=== PATIENT | male | born 1980 | race Caucasian/White ===

== ENCOUNTER 2024-06-21 10:03 | Emergency (ER) | payer MEDICAID ==
[~2024-06-21] VITALS: Ht 180.3 cm; Wt 141.0 kg
[2024-06-21 10:20] VITALS: TEMP 98.8
[2024-06-21 10:32] VITALS: PULSE 52; RESP 18; O2SAT 97
[2024-06-21] MEDS: KETOROLAC TROMETH 30 MG/ML 1ML VIAL IV ONE (10:50)
[2024-06-21] MEDS: METOCLOPRAMIDE HCL 5MG/ml INJ 2ml VIAL IV ONE (10:50)
[2024-06-21] MEDS: SODIUM CHLORIDE 0.9% 1,000 ML IVB ONE (10:57)
[2024-06-21 11:10] LABS: Basophils # (auto) 0 10 ^3/uL (0-0.2); Basophils % (auto) 0.7 % (0.0-2.0); Eosinophils # (auto) 0.1 10 ^3/uL (0-0.8); Eosinophils % (auto) 1.5 % (0.0-7.0); Hemoglobin 15.5 g/dL (13.5-17.5); Lymphocytes # (auto) 1.5 10 ^3/uL (0.4-5.4); Lymphocytes % (auto) 23.5 % (10.0-50.0); Mean Corpuscular Hemoglobin 29.3 pg (28.0-32.0); Mean Corpuscular Hgb Conc. 34.5 g/dL (32.0-36.0); Monocytes # (auto) 0.5 10 ^3/uL (0-1.3); Monocytes % (auto) 8.4 % (0.0-12.0); Neutrophils # (auto) 4.2 10 ^3/uL (1.6-8.6); Neutrophils % (auto) 65.9 % (37.0-80.0); Nucleated Red Blood Cells % 0.1 %; Platelet Count (auto) 207 10^3/uL (140-450); Red Blood Cells 5.29 10^6/uL (4.5-5.90); Red Cell Distribution Width 13.8 % (11.8-14.3); White Blood Cell 6.4 10^3/uL (4.4-10.8)
[2024-06-21 11:23] LABS: Urine Bacteria None Seen /hpf (None Seen)
[2024-06-21 11:25] LABS: Alanine Aminotransferase 26 U/L (7-40); Alkaline Phosphatase 63 U/L (46-116); Calcium 9.3 mg/dL (8.7-10.4); Carbon Dioxide 24 mmol/L (20-30); Chloride 107 mmol/L (98-107); Glucose 145 mg/dL (74-106); Lipase 42 U/L (12-53); Potassium 4.5 mmol/L (3.5-5.1)
[2024-06-21 11:26] LABS: Albumin 4.4 g/dL (3.2-4.8); Anion Gap 8 (5-15); Aspartate Aminotransferase 17 U/L (13-40); BUN/Creatinine Ratio 12.1 (10.0-20.0); Bilirubin, Total 0.5 mg/dL (0.2-1.0); Blood Urea Nitrogen 13 mg/dL (9-23); Sodium 139 mmol/L (136-145); Total Protein 6.8 g/dL (5.7-8.2)
[2024-06-21 11:38] LABS: Urine Blood Negative /uL (Negative); Urine Clarity Clear (Clear); Urine Color Yellow (Yellow); Urine Protein, UAD TRACE (Negative); Urine Specific Gravity 1.021 (1.001-1.035); Urine Urobilinogen Normal (Negative); Urine WBC 1 /hpf (0 - 3)
[2024-06-21 13:00] VITALS: BP 135/83; PULSE 68; RESP 15; O2SAT 98
[2024-06-21] MEDS ORDERED: DICL50TA2 PO (13:21)
[2024-06-21] MEDS ORDERED: HYDR-4902 PO (13:21)
[2024-06-21] MEDS ORDERED: TAMS-35 PO (13:21)
== END 2024-06-21 13:51 | disposition home or self-care (01) ==
LOC: EDBD 10:03 → ER 10:03
DX: N20.1 Calculus of ureter (principal); R10.32 Left lower quadrant pain; Z79.899 Other long term (current) drug therapy
CPT/HCPCS: 36415; 74176; 80053; 81001; 83690; 83735; 85025; 96361; 96374; 96375; 99285; J1885; J2765; J7030